=== PATIENT | male | born 1985 | race Caucasian/White ===

== ENCOUNTER 2018-12-08 12:14 | Emergency (ER) | payer OTHER, MEDICAID, SELFPAY ==
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
[2018-12-08 12:21] VITALS: BP 152/87; PULSE 117; RESP 22; TEMP 36.9; O2SAT 100
[2018-12-08 13:07] VITALS: BP 140/89; PULSE 102; RESP 17; O2SAT 96
[2018-12-08 14:21] VITALS: BP 131/95; PULSE 97; RESP 17; O2SAT 97
== END 2018-12-08 14:21 | disposition home or self-care (01) ==
PROVIDERS: Emergency Provider Emergency Medicine
DX: F41.9 Anxiety disorder, unspecified (principal); R07.89 Other chest pain
CPT/HCPCS: 71045; 93005; 93010; 99282; 99284

== ENCOUNTER 2019-03-04 23:00 | Emergency (ER) | payer MEDICAID, SELFPAY ==
[2019-03-04 23:17] VITALS: BP 121/72; PULSE 98; RESP 18; TEMP 36.3; O2SAT 100; BMI 26.6
[2019-03-05 00:40] LABS: Add Manual Diff / Slide Review NO; Basophils Absolute Auto 100 /uL (0-100); Basophils Percent Auto 0.8 % (0-2); Eosinophils Absolute Auto 200 /uL (0-450); Eosinophils Percent Auto 2.3 % (2-4); Hematocrit 39.6 % (41-53); Hemoglobin 13.2 g/dL (13.5-17.5); Lymphocytes Absolute Auto 1900 /uL (1100-4500); Lymphocytes Percent Auto 21.9 % (25-40); Mean Corpuscular HGB Conc 33.4 % (30-36); Mean Corpuscular Volume 89.8 fL (80-100); Monocytes Absolute Auto 800 /uL (0-900); Monocytes Percent Auto 8.8 % (3-14); Neutrophils Absolute Auto 5700 /uL (1500-7000); Neutrophils Percent Auto 66.2 % (50-75); Platelet Count 146 X10^3/uL (150-400); Red Blood Cell Count 4.41 X10^6/uL (4.5-5.9); White Blood Cell Count 8.7 X10^3/uL (4.5-11.0)
[2019-03-05] MEDS: DOXYCYCLINE HYCLATE 100 MG TABLET PO (00:46)
[2019-03-05 00:51] VITALS: BP 116/79; PULSE 85; RESP 16; O2SAT 100
--- NOTE | 2019-03-05 07:26 | ED_ITS ---
HPI - Skin/Abscess/Foreign Bdy General Chief complaint: Skin/Abscess/Foreign Body Stated complaint: left ankle swollen, painful Time Seen by Provider: 03/04/19 23:08 Source: patient Mode of arrival: ambulatory Limitations: no limitations History of Present Illness HPI narrative: 34M smoker with history of skin infection and IVDA presents with painful red skin on anterior L mueller without injury. No systemic findings such as fever, chills, SOB, N/V or weakness. No calf pain MD complaint: rash and discoloration Onset (ago): hour(s) Tetanus up to date: yes Location: LLE Severity: moderate Quality: burning, aching and sharp Relieving factors: none Exacerbating factors: none Context: none Treatments prior to arrival: none Related Data Previous Rx's Medication Instructions Recorded doxycycline hyclate 100 mg PO BID #20 tab 03/05/19 Review of Systems Constitutional Denies chills, Denies fever(s), Denies lethargy and Denies weakness Eyes Denies change in vision, Denies eye discharge, Denies irritation and Denies loss of vision ENT Ears, Nose, Mouth, and Throat: Denies change in voice, Denies neck pain and Denies sore throat Cardiovascular Denies chest pain, Denies irregular heart rhythm, Denies lightheadedness, Denies palpitations, Denies dyspnea, Denies dyspnea on exertion and Denies orthopnea Respiratory Denies cough, Denies dyspnea, Denies dyspnea on exertion and Denies wheezing Gastrointestinal Gastrointestinal: Denies abdominal pain, Denies change in bowel habits, Denies diarrhea, Denies nausea and Denies vomiting Genitourinary Denies hematuria, Denies flank pain, Denies urinary incontinence and Denies urinary urgency Musculoskeletal Denies neck pain Integumentary/Breasts Denies pruritus, Reports erythema, Reports rash and Denies wounds Neurologic Denies confusion, Denies loss of vision and Denies weakness Psychiatric Denies anxiety, Denies confusion, Denies depression, Denies homicidal ideation and Denies suicidal ideation Endocrine Denies palpitations Hematologic/Lymphatic Denies easy bruising Allergic/Immunologic Denies wheezing PFSH Medical History Patient denies significant medical history (Acute) Social History Smoking Status: Current every day smoker alcohol intake: never substance use type: does not use Social History Smoking Status: Current every day smoker alcohol intake: never substance use type: does not use Exam Narrative Exam Narrative: GEN: AOx3 and in mild distress EYES: Pupils are equal, round, and reactive to light and accommodation. Extraoccular muscles are intact bilaterally. There is no subconjunctival hemorrhage or exudate. CHEST: Lungs are clear to auscultation bilaterally and free of wheezes, rales, or rhonchi. Heart rate is regular rhythm, there are no murmurs, clicks, rubs, or gallops. There is no chest wall tenderness. ABD: Abdomen is soft and nontender. There is no guarding or rebound. Bowel sounds are normal in all 4 quadrants. There is no mass or organomegaly. EXT: Full painless ROM of all extremities with no loss of sensation or strength. SKIN: Warm, red and tender to anterior L mueller, no induration or fluctuation Initial Vital Signs Initial Vital Signs: Vital Signs Temperature 97.3 F L 03/04/19 23:17 Pulse Rate 98 H 03/04/19 23:17 Respiratory Rate 18 03/04/19 23:17 Blood Pressure 121/72 03/04/19 23:17 Pulse Oximetry 100 03/04/19 23:17 Course Orders Ordered: ED Orders 03/05/19 00:31 Complete Blood Count AUTO DIFF Stat Discontinued Medications Doxycycline Hyclate (Vibramycin) 100 mg PO NOW ONE Stop: 03/05/19 00:38 Last Admin: 03/05/19 00:46 Dose: 100 mg Vital Signs - 8 hr 03/05/19 00:51 Pulse Rate 85 Respiratory Rate 16 Blood Pressure 116/79 Pulse Oximetry 100 MDM - Skin/Abscess/Foreign Bdy Lab Data Result diagrams: 03/05/19 00:31 Lab Results 03/05/19 Range/Units 00:31 WBC 8.7 (4.5-11.0) X10^3/uL RBC 4.41 L (4.5-5.9) X10^6/uL Hgb 13.2 L (13.5-17.5) g/dL Hct 39.6 L (41-53) % MCV 89.8 (80-100) fL MCH 30.0 (26-34) PG MCHC 33.4 (30-36) % RDW 14.0 (11.6-14.8) % Plt Count 146 L (150-400) X10^3/uL Neut % (Auto) 66.2 (50-75) % Lymph % (Auto) 21.9 L (25-40) % [place] % (Auto) 8.8 (3-14) % Eos % (Auto) 2.3 (2-4) % Baso % (Auto) 0.8 (0-2) % Neut # (Auto) 5700 (1124-0268) /uL Lymph # (Auto) 1900 (7387-7512) /uL [place] # (Auto) 800 (0-900) /uL Eos # (Auto) 200 (0-450) /uL Baso # (Auto) 100 (0-100) /uL Discharge Plan Departure Patient Disposition: Home Clinical Impression: Cellulitis Qualifiers: Site of cellulitis: extremity Site of cellulitis of extremity: lower extremity Laterality: left Qualified Code(s): L03.116 - Cellulitis of left lower limb Discharge Date/Time: 03/05/19 00:52 Interventions: ED Discharge Assessment Last Done: 03/05/19 00:51 Instructions: DI for Cellulitis -- Adult Activity Restrictions/Additional Instructions: *You have been diagnosed with [left leg cellulitis] *What to do: *Take medications as directed *Follow up with your primary care provider in 2-3 days, call for an appointment. Let them know you were seen in the Emergency Department and that we ask that you be seen in follow up *Return to ER if you should have any new, worsening or concerning symptoms Prescriptions: New doxycycline hyclate 100 mg tablet 100 mg PO BID Qty: 20 RF: 0 Referrals: [facility] [Outside]
== END 2019-03-05 00:52 | disposition home or self-care (01) ==
PROVIDERS: Emergency Provider Emergency Medicine
DX: L03.116 Cellulitis of left lower limb (principal)
CPT/HCPCS: 36591; 85025; 99282; 99283

== ENCOUNTER 2019-09-24 14:56 | Emergency (ER) | payer MEDICAID, SELFPAY ==
[2019-09-24 15:30] VITALS: BP 145/77; PULSE 100; RESP 14; TEMP 36.6; O2SAT 100
[2019-09-24] MEDS: DOXYCYCLINE HYCLATE 100 MG TABLET PO (16:03)
[2019-09-24] MEDS: IBUPROFEN 400 MG TABLET PO (16:03)
[2019-09-24] MEDS: ACETAMINOPHEN 325 MG TABLET 975 MG PO (16:03)
--- NOTE | 2019-09-24 16:07 | ED.SKABFB ---
HPI - Skin/Abscess/Foreign Bdy <ROSANA Vernon - Last Filed: 09/24/19 19:18> General Chief complaint: Skin/Abscess/Foreign Body Stated complaint: Wound on Right Hand, Swelling and Pain Time Seen by Provider: 09/24/19 15:29 Source: patient Mode of arrival: Ambulatory Limitations: no limitations History of Present Illness HPI narrative: This is a 34-year-old male, occasional smoker, who presents to ED with right hand discomfort, redness, warmth for last 3-4 days with ulcerated lesion on dorsal aspect of right hand. Patient denies fever, chills, nausea or vomiting. Patient is reports he started as a small little bump as a pimple and he had picked on it and drained small clear liquid. Patient reports pain increases with movement, flexing and extending his right hand. Patient right dominant hand. Patient denies right axillary pain. Patient reports he is IV drug user of Heroine but he does not inject into tissue. Patient denies history of diabetes. Related Data Previous Rx's Medication Instructions Recorded doxycycline hyclate 100 mg PO Q12H 7 Days #14 cap 09/24/19 Review of Systems <ROSANA Vernon - Last Filed: 09/24/19 19:18> Review of Systems Narrative: General: Denies fever, chills, fatigue, malaise, sweats. HEENT: Denies sinus pain, ear pain, sore throat, difficulty swallowing, dizziness. Respiratory: Denies dyspnea, cough, wheezing, hemoptysis, sputum. Cardiovascular: Denies chest pain, palpitations, orthopnea, edema. Gastrointestinal: Denies nausea, vomiting, abdominal pain, diarrhea, constipation, melena. : Denies dysuria, frequency, incontinence, hematuria, urinary retention. Musculoskeletal: See HPI. Skin: See HPI Neurologic: Denies weakness, headache, numbness, change in speech, confusion, seizures, incoordination. Psychiatric: No concerning psychosocial issues. 12-point review of systems is negative except for those stated above. Patient History <ROSANA Vernon - Last Filed: 09/24/19 19:18> Medical History Patient denies significant medical history (Acute) Social History Smoking Status: Current every day smoker alcohol intake: never substance use type: does not use Smoking Status: Current every day smoker Substance Use Type: heroin and methamphetamine Exam <ROSANA Vernon - Last Filed: 09/24/19 19:18> Narrative Exam Narrative: GEN: Alert, oriented x 3, well appearing and nourished, and in no acute distress. Head: Normal cephalic, atraumatic. No scalp or temporal tenderness, palpable mass or rash. EYES: Pupils are equal, round, and reactive to light and accommodation. Extraocular muscles are intact bilaterally. There is no subconjunctival hemorrhage, exudate and sclera non-icteric. ENT: Hearing grossly intact. Nose without bleeding, purulent discharge or deviation. Mucous membrane moist, no mucosal lesion. Throat without erythema, tonsillar hypertrophy or exudate. Uvula in midline, airway patent. Neck: Trachea in midline. No JVD, non-tender without lymphadenopathy. No masses or thyroid megaly. Supple, non-tender and no meningeal signs. CARDIAC: Normal regular rate and rhythm without murmurs, gallops, or rubs. No chest wall tenderness. No peripheral edema, cyanosis or pallor. Capillary refill is less than 2 seconds. RESPIRATORY: No stridor, respiratory distress, increase work of breathing, or accessary muscle used. ABD: Abdomen soft, nontender and non-distended. No guarding or rebound tenderness to palpate. Bowel sounds are normal in all 4 quadrants. There is no palpable masses or organomegaly. SKIN: Diffuse redness on dorsal right hand with warmth with about 6mm diameter in ulcerated lesion in the middle with no drainage. No fluctuation noted. BACK: Nontender without deformity or crepitance. No flank tenderness. NEUROLOGICAL: Alert and oriented to place, time and person. Sensation and motor function intact bilaterally. No facial droops, dysphasia. PSYCHIATRIC: Good judgement and reason, without hallucinations, abnormal affect or abnormal behaviors during the examination. Patient is not suicidal. Initial Vital Signs Initial Vital Signs: Vital Signs Temperature 97.9 F 09/24/19 15:30 Pulse Rate 100 H 09/24/19 15:30 Respiratory Rate 14 09/24/19 15:30 Blood Pressure 145/77 H 09/24/19 15:30 Pulse Oximetry 100 09/24/19 15:30 Extrem Right upper extremity: shoulder/upper arm Details: normal to inspection; no tenderness and no swelling, elbow/forearm Details: normal to inspection; no tenderness and no swelling, wrist Details: normal to inspection; no tenderness and no swelling and hand Details: abnormal to inspection, normal capillary refill, neuromotor exam normal Details: wrist extension normal, thumb opposition normal and fingers 2-5 ABduction normal, neurosensory exam normal, tendon exam normal Location: of all digits, tenderness Location: of the dorsal hand, vascular exam Details: radial pulse present and normal capillary refill, normal ROM of fingers, warmth, swelling and other (Erythematous dorsal right hand. About 6 mm ulcerative lesion in the middle. No drainage noted.) <Dolores Mars MD - Last Filed: 09/27/19 09:10> Initial Vital Signs Initial Vital Signs: Vital Signs Temperature 97.9 F 09/24/19 15:30 Pulse Rate 100 H 09/24/19 15:30 Respiratory Rate 14 09/24/19 15:30 Blood Pressure 145/77 H 09/24/19 15:30 Pulse Oximetry 100 09/24/19 15:30 Scores <ROSANA Vernon - Last Filed: 09/24/19 19:18> GCS Bath coma scale eye opening: Spontaneous Marisa coma scale verbal response: Orientated Bath coma scale motor response: Obey commands Marisa coma scale total score: 15 Course <ROSANA Vernon - Last Filed: 09/24/19 19:18> Orders Ordered: Discontinued Medications Acetaminophen (Tylenol) 975 mg PO NOW ONE Stop: 09/24/19 15:51 Last Admin: 09/24/19 16:03 Dose: 975 mg Documented by: MILAN Doxycycline Hyclate (Vibramycin) 100 mg PO NOW ONE Stop: 09/24/19 15:51 Last Admin: 09/24/19 16:03 Dose: 100 mg Documented by: MILAN Ibuprofen (Advil) 400 mg PO NOW ONE Stop: 09/24/19 15:52 Last Admin: 09/24/19 16:03 Dose: 400 mg Documented by: MILAN Vital Signs Vital signs: Vital Signs - 8 hr 09/24/19 15:30 Temperature 97.9 F Pulse Rate 100 H Respiratory Rate 14 Blood Pressure 145/77 H Pulse Oximetry 100 <Dolores Mars MD - Last Filed: 09/27/19 09:10> Orders Ordered: Discontinued Medications Acetaminophen (Tylenol) 975 mg PO NOW ONE Stop: 09/24/19 15:51 Last Admin: 09/24/19 16:03 Dose: 975 mg Documented by: MILAN Doxycycline Hyclate (Vibramycin) 100 mg PO NOW ONE Stop: 09/24/19 15:51 Last Admin: 09/24/19 16:03 Dose: 100 mg Documented by: MILAN Ibuprofen (Advil) 400 mg PO NOW ONE Stop: 09/24/19 15:52 Last Admin: 09/24/19 16:03 Dose: 400 mg Documented by: MILAN Vital Signs Vital signs: Vital Signs - 8 hr 09/24/19 15:30 Temperature 97.9 F Pulse Rate 100 H Respiratory Rate 14 Blood Pressure 145/77 H Pulse Oximetry 100 MDM - Skin/Abscess/Foreign Bdy <ROSANA Vernon - Last Filed: 09/24/19 19:18> Differential Diagnosis Differential diagnosis: Likely cellulitis and other (Abscess) Medical Records Attestation: I reviewed the patient's medical records. [facility] Narrative Medical decision making narrative: This is a 34-year-old male who is a IVDU of methamphetamine and heroin presents to ED with right dorsal aspect cellulitis. Patient denies fever, chills. Patient denies drugs through skin popping. Physical exam of right hand is consistent with cellulitis with erythema, warmth, swelling without fluctuation or induration. Right hand has been outlined with skin marker. Patient was treated with 1st dose of doxycycline b.i.d. for 7 day course along Tylenol and Motrin pain management. Patient provided with good Rx coupon and advised to take this medication up as [facility] and discharged to home with the remaining Rx. Return precautions were discussed with the patient and patient verbalized understanding and in agreement with the treatment plan. Discharge Plan Departure Patient Disposition: Home Clinical Impression: Cellulitis Qualifiers: Site of cellulitis: extremity Site of cellulitis of extremity: upper extremity Laterality: right Qualified Code(s): L03.113 - Cellulitis of right upper limb Discharge Date/Time: 09/24/19 16:14 Instructions: DI for Cellulitis -- Adult Activity Restrictions/Additional Instructions: You have been diagnosed with [cellulitis on right hand. There is warmth, redness and swelling on affected hand. You were treated with 1st dose of doxycycline in ED and you need to complete 7 day course for twice a day.]. What to do: *Take your medications as directed. You can take [id number] Tylenol and or Motrin as needed for discomfort. Tylenol 650-1000 mg up to 4 times a day as needed for discomfort and fever. Ibuprofen 400 mg to 600 mg up to 3 times a day as needed with food for pain and discomfort. *Follow up with your primary care provider in 2-3 days, call for an appointment. Let them know you were seen in the ED and that we asked you to be seen in follow up. *Return to ED if you have any new, worsening, or concerning symptoms, such as [high fever, increasing pain/warmth/redness, weakness, tingling/numbness, chest pain, breathing difficulty or any acute concerns]. Prescriptions: New doxycycline hyclate 100 mg capsule 100 mg PO Q12H 7 Days Qty: 14 RF: 0 Referrals: [facility] [Outside]
== END 2019-09-24 16:14 | disposition home or self-care (01) ==
PROVIDERS: Emergency Provider Nurse Practitioner Family
DX: L03.113 Cellulitis of right upper limb (principal)
CPT/HCPCS: 99283

== ENCOUNTER 2019-12-26 09:55 | Emergency (ER) | payer MEDICAID, SELFPAY ==
--- NOTE | 2019-12-26 10:01 | ED_ITS ---
HPI - General Adult General Chief complaint: Toxicology Problem Stated complaint: Overdose Time Seen by Provider: 12/26/19 10:00 Source: EMS Mode of arrival: EMS Limitations: altered mental status History of Present Illness HPI narrative: Patient is a 34-year-old male. Brought to the emergency department by EMS. It was reported that this morning the patient did use 1/4 of a g of heroin IV. It was then reported that he swallowed approximately 1-1/2 oz of heroin 40 minutes prior to arrival. He was in the back of a police car and was very somnolent and slumped over. Please transported the patient to EMS by [facility]. Approximately 15 minutes prior to arrival patient received 2 g of IM Narcan. EMS report that this did make the patient less somnolent. Was somewhat alert by EMS after the Narcan and this is where information provided above was obtained. Upon my evaluation patient unable/unwilling to provide any HPI Review of Systems Review of Systems ROS Unobtainable: Unobtainable due to mental condition Patient History Medical History Patient denies significant medical history (Acute) Social History Smoking Status: Current every day smoker alcohol intake: never substance use type: does not use Smoking Status: Current every day smoker Substance Use Type: heroin and methamphetamine Exam Initial Vital Signs Initial Vital Signs: Vital Signs Temperature 98.4 F 12/26/19 10:02 Pulse Rate 116 H 12/26/19 10:02 Respiratory Rate 18 12/26/19 10:02 Blood Pressure 128/71 12/26/19 10:02 Pulse Oximetry 99 12/26/19 10:02 Const General: healthy appearing Limitations: altered mental status HENMT Head: normal to inspection and normocephalic Resp Effort & Inspection: normal respiratory effort Auscultation: clear to auscultation bilaterally Cardio Rate: tachycardic Rhythm: regular rhythm GI Inspection: non-distended Palpation: soft Skin Lesions: no lesions Rashes: no rashes Neuro General: moves all extremities Other: Patient does answer some questions and his speech when he answers is clear and direct. Does follow some directions. Does move all 4 extremities. Will not answer some orientation questions. Does state his name. Does not answer when asked the year. Extrem General: normal to inspection and capillary refill normal Psych Appearance: grossly normal and well kempt Course Orders Ordered: ED Orders 12/26/19 10:30 Acetaminophen Stat Complete Blood Count AUTO DIFF Stat Comprehensive Metabolic Panel Stat Ethanol (ETOH) Stat Lipase Stat Salicylate Stat Vital Signs Vital signs: Vital Signs - 8 hr 12/26/19 10:02 12/26/19 10:30 12/26/19 11:00 Temperature 98.4 F Pulse Rate 116 H 99 H 104 H Respiratory Rate 18 19 27 H Blood Pressure 128/71 Blood Pressure [Right Arm] 134/87 120/66 Pulse Oximetry 99 100 96 12/26/19 11:30 Temperature Pulse Rate 116 H Respiratory Rate 30 H Blood Pressure Blood Pressure [Right Arm] 140/70 Pulse Oximetry 100 Medical Decision Making Lab Data Lab results reviewed: Yes I reviewed the patient's lab results. Result diagrams: 12/26/19 10:30 12/26/19 10:30 Labs: Lab Results 12/26/19 12/26/19 12/26/19 Range/Units 10:30 10:30 10:30 WBC 6.3 (4.5-11.0) X10^3/uL RBC 4.92 (4.5-5.9) X10^6/uL Hgb 15.0 (13.5-17.5) g/dL Hct 42.7 (41-53) % MCV 86.8 (80-100) fL MCH 30.5 (26-34) PG MCHC 35.1 (30-36) % RDW 13.1 (11.6-14.8) % Plt Count 157 (150-400) X10^3/uL Neut % (Auto) 64.6 (50-75) % Lymph % (Auto) 23.2 L (25-40) % Nye % (Auto) 9.8 (3-14) % Eos % (Auto) 2.0 (2-4) % Baso % (Auto) 0.4 (0-2) % Neut # (Auto) 4100 (7463-9552) /uL Lymph # (Auto) 1500 (1263-2289) /uL Nye # (Auto) 600 (0-900) /uL Eos # (Auto) 100 (0-450) /uL Baso # (Auto) 0 (0-100) /uL Sodium 138 (137-145) mmol/L Potassium 4.4 (3.4-5.1) mmol/L Chloride 100 (98-107) mmol/L Carbon Dioxide 28 (22-32) mmol/L BUN 14 (9-20) mg/dL Creatinine 0.89 (0.66-1.25) mg/dL Estimated GFR > 60.0 (>60) mL/min BUN/Creatinine Ratio 15.7 (6-22) Glucose 83 (70-100) mg/dL Calcium 10.0 (8.4-10.2) mg/dL Total Bilirubin 1.0 (0.2-1.3) mg/dL AST 39 (17-59) IU/L ALT 27 (<50) IU/L Alkaline Phosphatase 82 (38-126) U/L Total Protein 7.5 (6.3-8.2) g/dL Albumin 4.5 (3.5-5.0) g/dL Globulin 3.0 (1.7-4.1) g/dL Albumin/Globulin Ratio 1.5 (1.0-2.8) Lipase 35 (23-300) U/L Salicylates < 1.0 (<20) mg/dL Acetaminophen < 10 L (10-30) ug/mL Ethyl Alcohol < 10 ( - 10) mg/dL MDM Narrative Medical decision making narrative: Patient was observed in the emergency department. No further issues of respiratory distress or hypoxia. Was somewhat agitated. Patient stated that he was going through withdrawals. I offered to give him some Ativan which he declined stating ?that shit does not work? he stated that he wanted Suboxone. Informed him that unfortunately that is not a course that we would be doing today out of the emergency department. Offered for him to talk with social Work. Patient stated that he hated me and that I was worthless. Stated that he wanted to leave. Patient left the emergency department without paperwork her being discharged. Patient pulled out his IV prior to discharge Discharge Plan Departure Patient Disposition: Left Against Medical Advice Clinical Impression: Left against medical advice, Drug abuse Discharge Date/Time: 12/26/19 12:40 Stand Alone Forms: Against Medical Advice
[2019-12-26 10:02] VITALS: BP 128/71; PULSE 116; RESP 18; TEMP 36.9; O2SAT 99
[2019-12-26 10:30] VITALS: BP 134/87; PULSE 99; RESP 19; O2SAT 100
--- NOTE | 2019-12-26 10:36 | PC.NURSE ---
Pt moved to Room 1 to be in view of ED nurses and Dr. Lin. Pt provided with warm blankets as he was shivering. Pt remains on monitor and laying on his left side. Respirations even and unlabored at 19/minute.
[2019-12-26 10:40] LABS: Add Manual Diff / Slide Review NO; Basophils Absolute Auto 0 /uL (0-100); Basophils Percent Auto 0.4 % (0-2); Eosinophils Absolute Auto 100 /uL (0-450); Hematocrit 42.7 % (41-53); Lymphocytes Absolute Auto 1500 /uL (1100-4500); Lymphocytes Percent Auto 23.2 % (25-40); Mean Corpuscular HGB Conc 35.1 % (30-36); Mean Corpuscular Hemoglobin 30.5 PG (26-34); Mean Corpuscular Volume 86.8 fL (80-100); Monocytes Absolute Auto 600 /uL (0-900); Monocytes Percent Auto 9.8 % (3-14); Neutrophils Absolute Auto 4100 /uL (1500-7000); Neutrophils Percent Auto 64.6 % (50-75); Platelet Count 157 X10^3/uL (150-400); Red Blood Cell Count 4.92 X10^6/uL (4.5-5.9); Red Cell Distribution Width 13.1 % (11.6-14.8); White Blood Cell Count 6.3 X10^3/uL (4.5-11.0)
[2019-12-26 10:50] LABS: Alanine Aminotransferase 27 IU/L (<50); Albumin 4.5 g/dL (3.5-5.0); Albumin Globulin Ratio 1.5 (1.0-2.8); Alkaline Phosphatase 82 U/L (38-126); Aspartate Aminotransferase 39 IU/L (17-59); BUN Creatinine Ratio 15.7 (6-22); Blood Urea Nitrogen 14 mg/dL (9-20); Carbon Dioxide 28 mmol/L (22-32); Chloride 100 mmol/L (98-107); Estimated Glomerular Filt Rate > 60.0 mL/min (>60); Ethanol (ETOH) < 10 mg/dL; Glucose 83 mg/dL (70-100); Lipase 35 U/L (23-300); Potassium 4.4 mmol/L (3.4-5.1); Salicylate < 1.0 mg/dL (<20); Sodium 138 mmol/L (137-145); Total Protein 7.5 g/dL (6.3-8.2)
[2019-12-26 10:51] LABS: HEMOLYSIS 56 (0-50)
[2019-12-26 10:52] LABS: Acetaminophen < 10 ug/mL (10-30)
[2019-12-26 11:00] VITALS: BP 120/66; PULSE 104; RESP 27; O2SAT 96
--- NOTE | 2019-12-26 11:17 | PC.NURSE ---
Addendum entered by Nellie Becerril R.N. 12/26/19 11:20: This RN replaced monitor with adhesive one. O2 remains at 99% on Room Air. Pt appears in no acute distress and respirations unlabored. Original Note: Patient very restless in bed. Remains on monitory but continually knocks SpO2 monitor off. This RN replaces monitoryand
[2019-12-26 11:30] VITALS: BP 140/70; PULSE 116; RESP 30; O2SAT 100
--- NOTE | 2019-12-26 11:43 | PC.NURSE ---
Patient began screaming and saying please help me and my legs. Pt unable to tell me what he wants help with or what is wrong with his legs. Pt became violent and began punching and kicking the bed. Does not follow commands. Pt ripped all monitoring devices off of him. I unwound all cords and turned off monitor. Dr. Lin aware. Pt in view of nurses station.
--- NOTE | 2019-12-26 12:39 | PC.NURSE ---
Patient thrashing around in bed, yelling at provider. Patient requesting suboxone informed we do not do that in ER. Patient pulled out IV and walked out of department. Provider Delia aware.
== END 2019-12-26 12:40 | disposition left against medical advice (07) ==
PROVIDERS: Emergency Provider Emergency Medicine
DX: F11.129 Opioid abuse with intoxication, unspecified (principal)
CPT/HCPCS: 36415; 80053; 80320; 80329; 83690; 85025; 99283; 99284; G0480

== ENCOUNTER → 2023-04-05 14:54 | Outpatient (ROUT) | payer OTHER, MEDICAID, SELFPAY | PROVIDERS: Visit Provider Family Medicine | DX: Z77.011 Contact with and (suspected) exposure to lead (principal) | CPT/HCPCS: 83655 ==